=== PATIENT | female | born 1940 | race African-American/Black ===

== ENCOUNTER 2024-08-25 07:56 | Emergency (ER) | payer OTHER ==
[~2024-08-25] VITALS: Ht 167.6 cm; Wt 100.0 kg
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
--- NOTE | 2024-08-25 08:52 | DVH ---
EXAM: XR Chest, 2 Views CLINICAL INDICATION: Generalized weakness TECHNIQUE: Frontal and lateral views of the chest. COMPARISON: None FINDINGS: LUNGS AND PLEURAL SPACES: Unremarkable. No consolidation. No pneumothorax. HEART: Cardiomegaly without overt failure. MEDIASTINUM: Unremarkable. Normal mediastinal contour. BONES/JOINTS: Unremarkable. No acute fracture. OTHER FINDINGS: . IMPRESSION: Cardiomegaly without overt failure.
[2024-08-25 09:00] VITALS: PULSE 57; RESP 18; O2SAT 95
[2024-08-25 09:22] LABS: Basophils # (auto) 0.1 10 ^3/uL (0-0.2); Basophils % (auto) 0.7 % (0.0-2.0); Eosinophils # (auto) 0.2 10 ^3/uL (0-0.8); Eosinophils % (auto) 2.4 % (0.0-7.0); Hematocrit 35.9 % (36.0-46.0); Hemoglobin 11.6 g/dL (12.2-16.2); Lymphocytes # (auto) 1.1 10 ^3/uL (0.4-5.4); Lymphocytes % (auto) 14.3 % (10.0-50.0); Mean Corpuscular Hemoglobin 30.4 pg (28.0-32.0); Mean Corpuscular Hgb Conc. 32.4 g/dL (32.0-36.0); Mean Corpuscular Volume 93.6 fL (80.0-100.0); Monocytes # (auto) 0.5 10 ^3/uL (0-1.3); Monocytes % (auto) 6.2 % (0.0-12.0); Neutrophils # (auto) 6.1 10 ^3/uL (1.6-8.6); Neutrophils % (auto) 76.4 % (37.0-80.0); Nucleated Red Blood Cells % 0.1 %; Platelet Count (auto) 209 10^3/uL (140-450); Red Blood Cells 3.83 10^6/uL (4.0-5.20); Red Cell Distribution Width 17.6 % (11.8-14.3); White Blood Cell 7.9 10^3/uL (4.4-10.8)
[2024-08-25] MEDS: LORazepam 2MG/ML-1ML VIAL IV ONE (09:29)
[2024-08-25] MEDS: SODIUM CHLORIDE 0.9% 500 ML IVB ONE (09:29)
[2024-08-25] MEDS: SODIUM CHLORIDE 0.9% 1,000 ML IV ONE ×2 (09:29→12:59)
[2024-08-25 09:36] LABS: Alanine Aminotransferase 14 U/L (7-40); Alkaline Phosphatase 96 U/L (46-116); Anion Gap 8 (5-15); Aspartate Aminotransferase 20 U/L (13-40); BUN/Creatinine Ratio 26.3 (10.0-20.0); Calcium 9.4 mg/dL (8.7-10.4); Carbon Dioxide 24 mmol/L (20-31); Magnesium 2.2 mg/dL (1.6-2.6); Potassium 4.2 mmol/L (3.5-5.1); Total Protein 6.6 g/dL (5.7-8.2)
[2024-08-25 09:37] LABS: Bilirubin, Total 0.6 mg/dL (0.2-1.0); Blood Urea Nitrogen 41 mg/dL (9-23); Chloride 113 mmol/L (98-107); Glucose 113 mg/dL (74-106); Sodium 145 mmol/L (136-145)
[2024-08-25] MEDS ORDERED: DEXTROSE (50%) 50ML SYRG IV PRN (16:00)
[2024-08-25] MEDS ORDERED: ONDANSETRON HCL 4 MG/2 ML VIAL IV PRN (16:00)
[2024-08-25] MEDS ORDERED: MORPHINE SULFATE 4 MG/ML SYR/VIAL IV PRN (16:00)
[2024-08-25] MEDS ORDERED: NITROGLYCERIN 0.4 MG SL TAB SL PRN ×2 (16:00)
[2024-08-25] MEDS ORDERED: MORPHINE SULFATE INJ 2 MG/ml SYRG IV PRN (16:00)
[2024-08-25] MEDS ORDERED: ACETAMINOPHEN 325 MG TAB PO PRN (16:00)
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
[2024-08-25 16:18] LABS: LDL Cholesterol 49 mg/dL (< 100); Triglycerides 103 mg/dL (< 150)
[2024-08-25 16:20] LABS: Cholesterol 120 mg/dL (< 200); HDL Cholesterol 43 mg/dL (40-59)
[2024-08-25] MEDS: ACETAMINOPHEN 325 MG TAB PO ONE (16:57)
[2024-08-25] MEDS ORDERED: InsuLIN REG 1unit/0.01ml Soln (100units/ml) SC SCH (17:00)
[2024-08-25] MEDS ORDERED: ACCU-CHEK COMFORT CURVE STRIP VI SCH (17:00)
[2024-08-25 18:54] VITALS: BP 149/58; PULSE 63; RESP 22; TEMP 98; O2SAT 98
--- NOTE | 2024-08-25 18:57 | ECG ---
[facility] Test Date: 2024-08-25 Test Time: 08:04:31 Pat Name: BARTOLO OLIVARES Department: ED Room: Gender: F Fire Services Plumber: MAYANK : 1940 Requested By: RAH ESCAMILLA Order Number: [id number] Reading MD: Madhu Zee Measurements Intervals [place] Rate: 59 P: -24 TN: 206 QRS: -49 QRSD: 146 T: 95 QT: 474 QTc: 470 Interpretive Statements Normal sinus rhythm LVH with IVCD, LAD and secondary repol abnrm Baseline wander in lead(s) V6 Electronically Signed On 08-26-2024 22:30:49 PDT by Madhu Zee Please click the below link to view image of tracing.
[2024-08-25] MEDS ORDERED: ATORVASTATIN 20 MG TAB PO SCH (22:00)
[2024-08-26] MEDS ORDERED: ASPirin 81 mg TAB PO SCH (10:00)
== END 2024-08-25 16:39 | disposition short-term general hospital (02) ==
LOC: EDBD 07:56 → ER 07:56 → UNDOADMIN 15:50 → OVERFLOW 15:50 → ER 16:39
DX: R53.1 Weakness (principal); F43.20 Adjustment disorder, unspecified; R79.89 Other specified abnormal findings of blood chemistry; I13.0 Hypertensive heart and chronic kidney disease with heart failure and stage 1 through stage 4 chronic kidney disease, or unspecified chronic kidney disease; E11.22 Type 2 diabetes mellitus with diabetic chronic kidney disease; I50.9 Heart failure, unspecified; N18.32 Chronic kidney disease, stage 3b; D63.1 Anemia in chronic kidney disease; J45.909 Unspecified asthma, uncomplicated
CPT/HCPCS: 36415; 71046; 80053; 80061; 82947; 83036; 83735; 83880; 84443; 84484; 85025; 93005; 96361; 96374; 99285; J2060; J7030